=== PATIENT | female | born 1975 | race Caucasian/White ===

== ENCOUNTER → 2021-11-04 13:32 | Outpatient (CLI) | payer OTHER, SELFPAY ==
--- NOTE | ~2021-11-04 | MM_ITS ---
EXAMINATION: MM screening rajat BI w erna HISTORY: Screening TECHNIQUE: Craniocaudal and mediolateral oblique 3-D tomosynthesis images were obtained and synthetic 2-D images were generated. CAD analysis was submitted and interpreted. COMPARISON: No prior mammogram is available for comparison at this institution. BREAST PARENCHYMAL COMPOSITION: Breast composed of scattered areas of fibroglandular density FINDINGS: There are bilateral breast asymmetries involving the upper central right breast on upper in ner quadrant of the left breast. No suspicious calcifications. IMPRESSION: 1. Bilateral breast asymmetries. 2. Additional mammographic views and possible breast ultrasound are recommended. BI-RADS Category 0: Incomplete: Needs additional imaging evaluation. Reviewed, dictated and finalized at location A. TOP ADMINISTRATOR IMPRESSION: 1. Bilateral breast asymmetries. 2. Additional mammographic views and possible breast ultrasound are recommended . BI-RADS Category 0: Incomplete: Needs additional imaging evaluation.
== END ==
PROVIDERS: PCP Family Medicine; Visit Provider Family Medicine
DX: Z12.31 Encounter for screening mammogram for malignant neoplasm of breast (principal); R92.8 Other abnormal and inconclusive findings on diagnostic imaging of breast
CPT/HCPCS: 77063; 77067

== ENCOUNTER 2022-01-08 07:50 | Outpatient (CLI) | payer OTHER, SELFPAY ==
--- NOTE | ~2022-01-08 | MMUS_ITS ---
EXAMINATION: MM diagnostic rajat BI w erna, US breast BI limited HISTORY: Bilateral breast asymmetries on screening mammogram TECHNIQUE: Additional 3-D tomosynthesis images of the breasts were performed and synthetic 2-D images were generated. CAD analysis was submitted and interpreted. High resolution limited bilateral breast ultrasound was performed. COMPARISON: 11/04/2021 BREAST PARENCHYMAL COMPOSITION: There are scattered areas of fibroglandular density. FINDINGS: MAMMOGRAPHIC FINDINGS: There is persistent focal asymmetry in the posterior third right breast in line with the nipple axis. An asymmetry persists in the middle third of the inner left breast on the craniocaudal view. No jigar picious calcification or architectural distortion are identified in either breast. ULTRASOUND: There is no evidence of suspicious solid or cystic mass in the vicinity of the bilateral mammographic findings in question. IMPRESSION: 1. Probably benign findings in the breasts. 2. Recommend 3 month follow-up bilateral diagnostic mammogram with ultrasound if necessary. BI-RADS category 3, probably benign findings. Reviewed, dictated and finalized at location A. AL MEDIA STRATEGIST IMPRESSION: 1. Probably benign findings in the breasts. 2. Recommend 3 month follow-up bilateral diagnostic mammogram with ultrasound i f necessary. BI-RADS category 3, probably benign findings.
== END 2022-01-08 07:51 ==
LOC: MICIMG 07:51
PROVIDERS: PCP Family Medicine; Visit Provider Family Medicine
DX: R92.8 Other abnormal and inconclusive findings on diagnostic imaging of breast (principal)
CPT/HCPCS: 76642; 77062; 77066; G0279

== ENCOUNTER 2024-06-01 15:23 | Outpatient (CLI) | payer OTHER, SELFPAY ==
--- NOTE | ~2024-06-01 | MM_ITS ---
EXAMINATION: MM screening rajat BI w erna HISTORY: Screening TECHNIQUE: Craniocaudal and mediolateral oblique 3-D tomosynthesis images were obtained and synthetic 2-D images were generated. CAD analysis was submitted and interpreted. COMPARISON: Comparison to multiple prior studies sequentially, with oldest reviewed study dated 10/09. BREAST PARENCHYMAL COMPOSITION: Not dense: There are scattered areas of fibroglandular density. FINDINGS: There is a left breast asymmetry in the upper inner quadrant of the left breast, middle thi rd. The right breast is stable without evidence for malignancy. IMPRESSION: 1. Left breast asymmetry. 2. Additional mammographic views and possible breast ultrasound are recommended. BI-RADS Category 0: Incomplete: Needs additional imaging evaluation. Reviewed, dictated and finalized at location B. IMPRESSION: 1. Left breast asymmetry. 2. Additional mammographic views and possible breast ultrasound are recommended . BI-RADS Category 0: Incomplete: Needs additional imaging evaluation.
== END 2024-06-01 15:24 ==
LOC: MICIMG 15:25
DX: Z12.31 Encounter for screening mammogram for malignant neoplasm of breast (principal); N64.89 Other specified disorders of breast
CPT/HCPCS: 77063; 77067

== ENCOUNTER 2024-06-27 08:27 | Outpatient (CLI) | payer OTHER, SELFPAY ==
--- NOTE | ~2024-06-27 | MMUS_ITS ---
EXAMINATION: US breast LT limited, MM diagnostic rajat LT w erna HISTORY: Follow-up breast asymmetry TECHNIQUE: Additional 3-D tomosynthesis images of the left breast were performed and synthetic 2-D im ages were generated. CAD analysis was submitted and interpreted. High resolution Limited left breast ultrasound was performed. COMPARISON: Comparison to multiple prior studies sequentially, with oldest reviewed study dated 10/09. BREAST PARENCHYMAL COMPOSITION: Not dense: There are scattered areas of fibroglandular density. FINDINGS: MAMMOGRAPHIC FINDINGS: There is a focal asymmetry in the upper inner quadrant of the left breast, middle third. There are no suspicious calcifications or architectural distortion. ULTRASOUND: Limited left breast ultrasound: At 12:00, 4 cm from the nipple there is a 4 mm cyst. At 10:00, 9 cm f rom the nipple there is a circumscribed 6 mm mass with parallel orientation, no significant posterior features. There are low level internal echoes. No internal vascularity. IMPRESSION: 1. Probable benign 6 mm left breast mass at 10:00, 9 cm from the nipple, likely corresponding to the mammographic finding. 2. Recommend 6 month follow-up Limited left breast ultrasound BI-RADS category 3, probably benign findings. Reviewed, dictated and finalized at location B. IMPRESSION: 1. Probable benign 6 mm left breast mass at 10:00, 9 cm from the nipple, likely corresponding to the mammographic finding. 2. Recommend 6 month follow-up Limited left breast ultrasound BI-RADS category 3, probably benign findings.
== END 2024-06-27 08:28 ==
LOC: MICIMG 08:28
DX: R92.8 Other abnormal and inconclusive findings on diagnostic imaging of breast (principal)
CPT/HCPCS: 76642; 77061; 77065; G0279